=== PATIENT | female | born 1970 | race Caucasian/White ===

== ENCOUNTER 2021-08-04 14:59 | Emergency (ER) | payer SELFPAY ==
[~2021-08-04] VITALS: Ht 152.4 cm; Wt 84.0 kg
[2021-08-04] MEDS ORDERED: IBUPROFEN 600 MG TABLET. PO ONE (15:30)
--- NOTE | 2021-08-04 15:53 | PHYS DOC ---
Past History Past Medical History: High Cholesterol, Hypertension (NATHEN VARGAS APRN) Past Surgical History: Other Additional Past Surgical Histo: BREAST REDUCTION (NATHEN VARGAS APRN) Alcohol Use: None Drug Use: None (NATHEN VARGAS APRN) Adult General Chief Complaint Chief Complaint: ANKLE PROBLEM HPI HPI Patient is a 51-year-old female presents to the emergency department complaining of twisting her right ankle and feeling it pop just prior to arrival to the emergency department today. Patient denies other injury to her body. Patient reports a 8 out of 10 pain to her right ankle. Patient denies numbness or tingling to her right foot. Patient also reports discomfort to her right leg just below her knee on the lateral aspect. Patient denies taking pain medications or using other nonpharmacological pain relief methods prior to arrival to the emergency department. (NATHEN VARGAS APRN) Review of Systems Review of Systems Constitutional: Denies fever or chills [] Eyes: Denies change in visual acuity, redness, or eye pain [] HENT: Denies nasal congestion or sore throat [] Respiratory: Denies cough or shortness of breath [] Cardiovascular: No additional information not addressed in HPI [] GI: Denies abdominal pain, nausea, vomiting, bloody stools or diarrhea [] : Denies dysuria or hematuria [] Musculoskeletal: Denies back pain or joint pain [] Integument: Denies rash or skin lesions [] Neurologic: Denies headache, focal weakness or sensory changes [] Endocrine: Denies polyuria or polydipsia [] All other systems were reviewed and found to be within normal limits, except as documented in this note. (NATHEN VARGAS APRN) Current Medications Current Medications Current Medications Medications (Trade) Dose Ordered Sig/Stevie Start Time Stop Time Status Last Admin Dose Admin Ibuprofen (Motrin) 600 mg 1X ONCE 08/04/21 15:30 08/04/21 15:31 DC 08/04/21 15:26 600 MG (NATHEN VARGAS APRN) Allergies Allergies Allergies Coded Allergies Type Severity Reaction Last Updated Verified No Known Drug Allergies 08/04/21 No (NATHEN VARGAS APRN) Physical Exam Physical Exam Constitutional: Well developed, well nourished, no acute distress, non-toxic appearance. 51-year-old female in no apparent distress. HENT: Normocephalic, atraumatic. Eyes: Conjunctiva normal, no discharge. Neck: Normal range of motion, no stridor. Cardiovascular: No cyanosis appreciated, distal cap refill less than 2 seconds. Lungs & Thorax: Patient is in no respiratory distress, no audible adventitious lung sounds appreciated. Abdomen: Nontender, no abnormalities noted. Skin: Warm, dry, no erythema, no rash. Back: No tenderness, no deformities. Extremities: No tenderness, no cyanosis, no clubbing, ROM intact, no edema. Except for right ankle, swelling to lateral malleolar skin surfaces, no skin discoloration appreciated, limited passive range of motion related to pain, no crepitus appreciated, pain to palpation proximal fibular head area of right lower extremity, distal cap refill equal and bilateral less than 2 seconds of lower extremities, 2+ dorsalis pedis pulses equal bilaterally. Neurologic: Alert and oriented X 3, normal motor function, normal sensory function, no focal deficits noted. Psychologic: Affect normal, judgement normal, mood normal. (NATHEN VARGAS APRN) Current Patient Data Vital Signs Vital Signs Date Time Temp Pulse Resp B/P (MAP) Pulse Ox O2 Delivery O2 Flow Rate FiO2 08/04/21 15:15 98.5 95 18 175/84 (114) 98 Room Air (NATHEN VARGAS APRN) EKG EKG [] (NATHEN VARGAS APRN) Radiology/Procedures Radiology/Procedures REASON: Proximal fibular area pain after twisting ankle PROCEDURE: TIBIA FIBULA RIGHT Two-view right tibia-fibula dated 08/04/2021. COMPARISON: Ankle films dated 08/04/2021. Indication: Pain. FINDINGS: 2 views right tibia-fibula show normal bony alignment. The proximal tibia and fibular shafts are intact. There is an oblique fracture of the distal fibula, mildly displaced. There is also possible nondisplaced fracture through the posterior malleolus, unchanged. Mild soft tissue swelling. IMPRESSION: 1. Fractures of the distal tibia and fibula, similar to recent ankle films. 2. No evidence of displaced proximal fracture. Electronically signed by: Nathen Loco MD (08/04/2021 4:55 PM) [id number] (NATHEN VARGAS APRN) Heart Score C/O Chest Pain: No Risk Factors: Risk Factors: DM, Current or recent (<one month) smoker, HTN, HLP, family history of CAD, obesity. Risk Scores: Risk Factors: DM, Current or recent (<one month) smoker, HTN, HLP, family history of CAD, obesity. (NATHEN VARGAS APRN) Course & Med Decision Making Course & Med Decision Making Pertinent Labs and Imaging studies reviewed. (See chart for details) 51-year-old female, vital signs reviewed, resents emerged from concerning twisting right ankle and feeling it pop prior to arrival to the emergency department. Physical examination concerning for ankle sprain versus fracture, concerning for Maisonneuve fracture, will order right ankle, right tib-fib x- ray. Ice pack application, p.o. pain medication. Tib-fib fracture negative for Maisonneuve fracture, ankle x-ray concerning for bimalleolar fracture, discussed findings with patient, discussed splint application, splint care at home, crutches, ice packs, elevation, RICE therapy, strict follow-up with orthopedic specialty, call Friday for appointment, patient gave verbal understanding of and is amenable to ED discharge planning. A CD copy of x-rays was given to patient by radiology staff. Posterior OCL splint with stirrup splint placed to right lower extremity by myself with ED nurse assistance, patient was given crutches with crutch walking instructions by ED nursing staff. Patient reports good pain relief after splint placement and p.o. pain medications given, patient remains neurovascular intact at discharge time, Discussed with the patient all findings and diagnostic testing as well as the need to follow-up with their primary care provider for further evaluation and treatment or return to the ED if any new or worsening symptoms. Strict return precautions were also discussed at length, the patient voiced understanding and agreement with the discharge planning. The patient was nontoxic in appearance, in no apparent distress, and hemodynamically stable at the time of disposition. (NATHEN VARGAS APRN) Dragon Disclaimer Dragon Disclaimer This electronic medical record was generated, in whole or in part, using a voice recognition dictation system. (NATHEN VARGAS APRN) Attending Co-Sign The patient was seen and interviewed as well as examined at the bedside. The chart was reviewed. The case was discussed. Agree with the plan of care. (SHARA KAT DO) Departure Departure: Impression: Primary Impression: Ankle fracture, bimalleolar, closed Disposition: HOME / SELF CARE / HOMELESS Condition: GOOD Referrals: JHOANA OSEGUERA (PCP) Patient Instructions: Ankle Fracture, Crutch Use Additional Instructions: You were seen today in the emergency department for left ankle pain after twisting her ankle earlier today. The x-ray of your ankle does show a fracture of your tibia and fibula, this is called a bimalleolar fracture. You were placed and an OCL splint, this is a temporary splint until you are seen by an health services information specialist for definitive treatment of your broken bones. Please do not bear weight on the splint, use the provided crutches when ambulating. As we discussed elevation and ice packs 30 minutes on and 30 minutes off while awake for the next 48 to 72 hours. I have prescribed for you pain medication to use as directed. Please call Friday to see an health services information specialist, you may use the provided orthopedic doctor or any health services information specialist of your choice. Return to the emergency department for worsening symptoms, or other concerns. Thank you for visiting our Emergency Department. It was a pleasure taking care of you today in the emergency department and we appreciate you trusting us with your care. If any additional problems come up don't hesitate to return to visit us. Please follow up with your primary care provider so they can plan additional care if needed and know about the problem that you had. If symptoms worsen come back to the Emergency Department. Any concerning symptoms that start such as chest pain, shortness of air, weakness or numbness on one side of the body, running high fevers or any other concerning symptoms return to the ER. [facility] Medical clinic in [facility] Address: [address], [place] [address] EMERGENCY DEPARTMENT GENERAL DISCHARGE INSTRUCTIONS Thank you for coming to [facility] (ED) today and trusting us with you care. We trust that you had a positivie experience in our Emergency Department. If you wish to speak to the department management, you may call the director at [phone]. YOUR FOLLOW UP INSTRUCTIONS ARE FOLLOWS: 1. Do you have a private Doctor? If you do not have a private doctor, please ask for a resource list of physicians or clinics that may be able to assist you with follow up care. 2. The Emergency Physician has interpreted your x-rays. The X-Ray specialist will also review them. If there is a change in the findings, you will be notified in 48 hours when at all possible. 3. A lab test or culture has been done, your results will be reviewed and you will be notified if you need a change in treatment. ADDITIONAL INSTRUCTIONS AND INFORMATION: 1. Your care today has been supervised by a physician who is specially trained in emergency care. Many problems require more than one evaluation for a complete diagnosis and treatment. We recommend that you schedule your follow up appointment as recommended to ensure complete treatment of you illness or injury. If you are unable to obtain follow up care and continue to have a problem, or if your condition worsens, we recommend that you return to the ED. 2. We are not able to safely determine your condition over the phone nor are we able to give sound medical advice over the phone. For these safety reasons, if you call for medical advice we will ask you to come to the ED for further evaluation. 3. If you have any questions regarding these discharge instructions please call the ED at [phone]. SAFETY INFORMATION: In the interest of safety, wellness, and injury prevention; we encourage you to wear your sealbelt, if you smoke; quite smoking, and we encourage family to use a protective helmet for bicycling and other sporting events that present an increased risk for head injury. IF YOUR SYMPTOMS WORSEN OR NEW SYMPTOMS DEVELOP, OR YOU HAVE CONCERNS ABOUT YOUR CONDITION; OR IF YOUR CONDITION WORSENS WHILE YOU ARE WAITING FOR YOUR FOLLOW UP APPOINTMENT; EITHER CONTACT YOUR PRIMARY CARE DOCTOR, THE PHYSICIAN WHOSE NAME AND NUMBER YOU WERE GIVEN, OR RETURN TO THE ED IMMEDIATELY. Scripts Ibuprofen (IBUPROFEN) 600 Mg Tablet 600 MG PO PRN Q6-8HRS PRN for PAIN, #30 TAB 0 Refills Prov: NATHEN VARGAS APRN 08/04/21 Hydrocodone Bit/Acetaminophen (HYDROCODONE-APAP 5-325 ) 1 Each Tablet 1 TAB PO PRN Q6HRS PRN for PAIN, #12 TAB 0 Refills Prov: NATHEN VARGAS APRN 08/04/21 Problem Qualifiers Primary Impression: Ankle fracture, bimalleolar, closed Encounter type: initial encounter Laterality: left Qualified Codes: S82.842A - Displaced bimalleolar fracture of left lower leg, initial encounter for closed fracture NATHEN VARGAS APRN Aug 04, 2021 15:53 SHARA KAT DO Aug 05, 2021 06:11
--- NOTE | 2021-08-04 16:05 | RAD ---
Three-view right ankle dated 08/04/2021. No comparison available. CLINICAL INDICATION: Pain. FINDINGS: 3 views right ankle show normal bony alignment. There is an oblique fracture through the distal one t hird fibular seen best on the lateral view. There is also a small vertically oriented fracture throug h the posterior malleolus. No medial malleolus fracture. Diffuse soft tissue swelling. The talar dome is intact. Possible small ankle joint effusion. IMPRESSION: 1. Mildly displaced distal fibular fracture. 2. Nondisplaced fracture through the posterior malleolus. 3. Diffuse soft tissue swelling. Electronically signed by: Nathen Loco MD (08/04/2021 4:03 PM) [id number]
[2021-08-04] MEDS ORDERED: HYDROcodone/APAP 5/325MG 1 TAB TABLET ONE (16:25)
[2021-08-04] MEDS ORDERED: HYDROcodone/APAP 5/325MG 1 TAB TABLET PO ONE (16:30)
[2021-08-04] MEDS ORDERED: HYDROcodone/APAP 10/325 1 TAB TABLET PO ONE (16:30)
--- NOTE | 2021-08-04 16:57 | RAD ---
Two-view right tibia-fibula dated 08/04/2021. COMPARISON: Ankle films dated 08/04/2021. Indication: Pain. FINDINGS: 2 views right tibia-fibula show normal bony alignment. The proximal tibia and fibular shafts are inta ct. There is an oblique fracture of the distal fibula, mildly displaced. There is also possible nondi splaced fracture through the posterior malleolus, unchanged. Mild soft tissue swelling. IMPRESSION: 1. Fractures of the distal tibia and fibula, similar to recent ankle films. 2. No evidence of displaced proximal fracture. Electronically signed by: Nathen Loco MD (08/04/2021 4:55 PM) [id number]
[2021-08-04 17:45] VITALS: BP 160/80
[2021-08-04] MEDS ORDERED: IBUP600T16 PO (17:50)
[2021-08-04] MEDS ORDERED: HYDR-2155 PO (17:50)
== END 2021-08-04 18:05 | disposition home or self-care (01) ==
LOC: ER 14:59
DX: S82.842A Displaced bimalleolar fracture of left lower leg, initial encounter for closed fracture (principal); E78.00 Pure hypercholesterolemia, unspecified; I10 Essential (primary) hypertension; X50.9XXA Other and unspecified overexertion or strenuous movements or postures, initial encounter; Y93.89 Activity, other specified; Y92.89 Other specified places as the place of occurrence of the external cause; Y99.8 Other external cause status
CPT/HCPCS: 29515; 73590; 73610; 99284